=== PATIENT | female | born 1990 | race Caucasian/White ===

== ENCOUNTER 2016-09-05 17:40 | Emergency (ER) | payer OTHER ==
--- NOTE | 2016-09-05 19:54 | ED CLINICAL REPORT ---
Clinical Report - Physicians/Mid Levels [facility] [address] [place] [address] 09/05/2016 17:42 Patient: KENYA SINGH Time Seen: 1812Sep 05 2016. Arrived- By private vehicle. Historian- patient. HISTORY OF PRESENT ILLNESS Chief Complaint: VAGINAL BLEEDING. This started just prior to arrival and still present. The symptoms are described as mild. (Patient reports numerous use of tampons in the last 4 hours, denies any history of similar heavy vaginal bleeding with her menses, this is a regular timeframe where she expected her menses. Denies any pain. Denies any lightheadedness syncope.). REVIEW OF SYSTEMS No vomiting, diarrhea or enlarged lymph nodes. All systems otherwise negative, except as recorded above. PAST HISTORY Problems: Anemia. Additional Surgeries: [place] teeth . Medications: None. Allergies: Codeine. SOCIAL HISTORY Current every day smoker. Alcohol use. No drug use. ADDITIONAL NOTES The nursing notes have been reviewed. PHYSICAL EXAM Vital Signs: 09/05/2016 17:54 BP: 132/77. HR: 65. RR: 18. O2 saturation: 100%. Temp: 98.4 F. Appearance: Alert. ENT: Pharynx normal. Neck: Neck supple. CVS: Heart sounds normal. Respiratory: No respiratory distress. Breath sounds normal. Abdomen: Soft and nontender. Bowel sounds normal. No abdominal tenderness or rebound tenderness. : Speculum and bimanual exam performed. External inspection normal. Speculum exam normal. Moderate vaginal bleeding, consisting of bright red blood. No cervical dilation. Bimanual exam normal. No tenderness present on bimanual exam. No tenderness with movement of the cervix. (chaperoned with RN). Neuro: Oriented X 3. LABS, X-RAYS, AND EKG Laboratory Tests: UA-Culture if indicated: (DAILY: 09/05/2016 18:50) ( MsgRcvd 09/05/2016 19:24) Final results Test Result Flag Units (Reference) URINE COLOR YELLOW URINE APPEARANCE CLEAR URINE GLUCOSE NEGATIVE (NEGATIVE) URINE BILIRUBIN NEGATIVE (NEGATIVE) URINE KETONE NEGATIVE (NEGATIVE) URINE SPECIFIC GRAVITY 1.010 (1.010-1.030) URINE PH 5.5 (5.0-8.0) URINE PROTEIN NEGATIVE (NEGATIVE) URINE UROBILINOGEN 0.2 EU/dL (0.2-1.0) URINE NITRITE NEGATIVE (NEGATIVE) URINE BLOOD TRACE-INTACT (NEGATIVE) URINE LEUK ESTERASE NEGATIVE (NEGATIVE) URINE RBC 0-1 rbc/hpf (0-1) URINE WBC RARE wbc/hpf (0-1) URINE EPITHELIAL CELLS 0-1 EPI/hpf (0-5) URINE BACTERIA NONE SEEN (NONE SEEN) URINE COMMENT CULT NOT INDICATED URINE CULTURES ARE SET-UP BASED ON THE FOLLOWING CRITERIA:POSITIVE NITRITEPOSITIVE LEUKOCYTE ESTERASEGREATER THAN 10 WHITE BLOOD CELLSMODERATE (2+) OR GREATER BACTERIA CBC w Diff: (DAILY: 09/05/2016 19:10) ( [facility] 09/05/2016 19:24) Final results Test Result Flag Units (Reference) WHITE BLOOD COUNT 12.2 H K/uL (4.5-11.5) RED BLOOD COUNT 4.37 M/uL (4.00-5.20) HEMOGLOBIN 13.5 gm/dL (12.0-16.0) HEMATOCRIT 39.1 % (36.0-46.0) MEAN CELL VOLUME 89 fL (80-100) MEAN CORPUSCULAR HGB 31 pg (26-34) MEAN CORPUSCULAR HGB CONC 35 g/dL (31-37) RED CELL DISTRIBUTION WIDTH 12.5 % (11.6-14.8) PLATELET COUNT 222 K/uL (150-400) NEUTROPHIL % 74.4 % (50-75) LYMPH % 17.0 L % (25-40) MONO % 6.2 % (3-14) EOSINOPHIL % 1.0 % (0-4) BASOPHIL % 1.4 % (0-2) BMP: (DAILY: 09/05/2016 19:10) ( [facility] 09/05/2016 19:43) Final results Test Result Flag Units (Reference) GLUCOSE 95 mg/dL (70-110) BUN 9 mg/dL (7-18) CREATININE 0.7 mg/dL (0.6-1.3) Estimated GFR >60 mL/min Estimated GFR- >60 mL/min Note: Persistent reduction over 3 months in eGFR<60 mL/min/1.73 m2 defines CKD. Patients with eGFR values>=60 mL/min/1.73 m2 may also have CKD if evidence ofpersistent proteinuria. Additional information may be foundat www.kidney.org. SODIUM 140 mmol/L (136-145) POTASSIUM 3.7 mmol/L (3.5-5.1) CHLORIDE 107 mmol/L (98-107) CARBON DIOXIDE 24 mmol/L (21-32) CALCIUM 8.8 mg/dL (8.5-10.1) BETA HCG, QUANTITATIVE <1 mIU/mL REFERENCE RANGE:Adult Males: <2 mIU/mLNon- Females: <6 mIU/mL Females:Approximate Approximate hCGGestational Age Range (mIU/mL) 0-1 week 0-501-2 weeks 40-3002-3 weeks 100-42093-0 weeks 500-49953-9 months 5,000-200,0002-3 months 10,000-100,0002nd trimester 3,000-50,0003rd trimester 1,000-50,000 . Note - Tests: (US pelvic: IMPRESSION: 1. Normal uterus and right ovary. 2. Non-visualized left ovary but no secondary sign of left adnexal pathology. Correlate clinically. Electronically Final signed by:Zaina Emanuel MD 09/05/2016 9:24:36 PM). PROGRESS AND PROCEDURES Course of Care: Here in the ER patient is very stable, hemodynamically stable, CBC unremarkable. Bleeding from the vagina and the cervix, with no clots, as expected for menses. Patient with largely otherwise negative ultrasound. Pain does not correlate the left aspect, and there is no secondary concern for acute torsion and tubo-ovarian abscess. Negative in the emergency department. 09/05/2016 20:07 BP: 117/72. HR: 68. RR: 17. O2 saturation: 100%. Temp: 97.6 F. Pain level now: 0/10. Patient is stable. Physical exam findings are improved. Symptoms better. Patient/family counseled. Differential Diagnosis: I considered perforated peptic ulcer, acute cholecystitis, acute appendicitis, diverticulitis, small bowel obstruction, adhesions, urinary tract infection, cystitis, ovarian cyst, pelvic inflammatory disease, pelvic abscess, hernia, diabetic ketoacidosis and medications as a possible cause of pelvic pain in this patient. This is a partial list of diagnoses considered. Disposition: Discharged. CLINICAL IMPRESSION Menorrhagia. INSTRUCTIONS No strenuous activity. Drink plenty of fluids. (motrin 800 mg every 8 hours starting two days before as needed for cramps). Warnings: Further evaluation is necessary. Follow-up: Follow up with a specialist. Follow-up with: Kiel Sosa MD, Obstetrics/Gynecology, , [facility], [address] [place] [address] Follow up. Call for the next available appointment. (Electronically signed by Kyara Mott P.A.-C 09/05/2016 22:39)
--- NOTE | 2016-09-05 19:54 | ED ORDER SUMMARY ---
..... Patient: KENYA SINGH OrderSheet [facility] VisitID: [id number] [address] [place] [address] 26y, F Registration Date/Time: 09/05/2016 ORDER SHEET Weight: 72.5 kg (stated) Allergies: Codeine GENERAL ORDERS: US Pelvic Complete w Transvag Urgent (18:13 09/05/2016 EKoroleva P.A.-C) (Ack 18:19 KHoerner) (19:09 EHassan R.N.) CBC w Diff Urgent (18:13 09/05/2016 EKoroleva P.A.-C) (Ack 18:19 KHoerner) (19:09 EHassan R.N.) BMP Urgent (18:13 09/05/2016 EKoroleva P.A.-C) (Ack 18:19 KHoerner) (19:09 EHassan R.N.) Serum Quantitative Urgent (18:13 09/05/2016 EKoroleva P.A.-C) (Ack 18:19 KHoerner) (19:09 EHassan R.N.) UA-Culture if indicated Urgent (18:13 09/05/2016 EKoroleva P.A.-C) (Ack 18:19 KHoerner) (18:57 JSanders R.N.) MEDICATION ORDERS: IV FLUIDS: ORDER SHEET NOTES: [Electronically signed by Taylor Pineda R.N. (20:08 09/05/2016)] [Electronically signed by Kyara Mott P.A.-C (22:39 09/05/2016)] [Electronically locked/signed by Taylor Pineda R.N. (20:08 09/05/2016)]
--- NOTE | 2016-09-05 19:54 | ED CLINICAL REPORT ---
Clinical Report - Physicians/Mid Levels [facility] [address] [place] [address] 09/05/2016 17:42 Patient: KENYA SINGH Time Seen: 1812Sep 05 2016. Arrived- By private vehicle. Historian- patient. HISTORY OF PRESENT ILLNESS Chief Complaint: VAGINAL BLEEDING. This started just prior to arrival and still present. The symptoms are described as mild. (Patient reports numerous use of tampons in the last 4 hours, denies any history of similar heavy vaginal bleeding with her menses, this is a regular timeframe where she expected her menses. Denies any pain. Denies any lightheadedness syncope.). REVIEW OF SYSTEMS No vomiting, diarrhea or enlarged lymph nodes. All systems otherwise negative, except as recorded above. PAST HISTORY Problems: Anemia. Additional Surgeries: [place] teeth . Medications: None. Allergies: Codeine. SOCIAL HISTORY Current every day smoker. Alcohol use. No drug use. ADDITIONAL NOTES The nursing notes have been reviewed. PHYSICAL EXAM Vital Signs: 09/05/2016 17:54 BP: 132/77. HR: 65. RR: 18. O2 saturation: 100%. Temp: 98.4 F. Appearance: Alert. ENT: Pharynx normal. Neck: Neck supple. CVS: Heart sounds normal. Respiratory: No respiratory distress. Breath sounds normal. Abdomen: Soft and nontender. Bowel sounds normal. No abdominal tenderness or rebound tenderness. : Speculum and bimanual exam performed. External inspection normal. Speculum exam normal. Moderate vaginal bleeding, consisting of bright red blood. No cervical dilation. Bimanual exam normal. No tenderness present on bimanual exam. No tenderness with movement of the cervix. (chaperoned with RN). Neuro: Oriented X 3. LABS, X-RAYS, AND EKG Laboratory Tests: UA-Culture if indicated: (DAILY: 09/05/2016 18:50) ( MsgRcvd 09/05/2016 19:24) Final results Test Result Flag Units (Reference) URINE COLOR YELLOW URINE APPEARANCE CLEAR URINE GLUCOSE NEGATIVE (NEGATIVE) URINE BILIRUBIN NEGATIVE (NEGATIVE) URINE KETONE NEGATIVE (NEGATIVE) URINE SPECIFIC GRAVITY 1.010 (1.010-1.030) URINE PH 5.5 (5.0-8.0) URINE PROTEIN NEGATIVE (NEGATIVE) URINE UROBILINOGEN 0.2 EU/dL (0.2-1.0) URINE NITRITE NEGATIVE (NEGATIVE) URINE BLOOD TRACE-INTACT (NEGATIVE) URINE LEUK ESTERASE NEGATIVE (NEGATIVE) URINE RBC 0-1 rbc/hpf (0-1) URINE WBC RARE wbc/hpf (0-1) URINE EPITHELIAL CELLS 0-1 EPI/hpf (0-5) URINE BACTERIA NONE SEEN (NONE SEEN) URINE COMMENT CULT NOT INDICATED URINE CULTURES ARE SET-UP BASED ON THE FOLLOWING CRITERIA:POSITIVE NITRITEPOSITIVE LEUKOCYTE ESTERASEGREATER THAN 10 WHITE BLOOD CELLSMODERATE (2+) OR GREATER BACTERIA CBC w Diff: (DAILY: 09/05/2016 19:10) ( [facility] 09/05/2016 19:24) Final results Test Result Flag Units (Reference) WHITE BLOOD COUNT 12.2 H K/uL (4.5-11.5) RED BLOOD COUNT 4.37 M/uL (4.00-5.20) HEMOGLOBIN 13.5 gm/dL (12.0-16.0) HEMATOCRIT 39.1 % (36.0-46.0) MEAN CELL VOLUME 89 fL (80-100) MEAN CORPUSCULAR HGB 31 pg (26-34) MEAN CORPUSCULAR HGB CONC 35 g/dL (31-37) RED CELL DISTRIBUTION WIDTH 12.5 % (11.6-14.8) PLATELET COUNT 222 K/uL (150-400) NEUTROPHIL % 74.4 % (50-75) LYMPH % 17.0 L % (25-40) MONO % 6.2 % (3-14) EOSINOPHIL % 1.0 % (0-4) BASOPHIL % 1.4 % (0-2) BMP: (DAILY: 09/05/2016 19:10) ( [facility] 09/05/2016 19:43) Final results Test Result Flag Units (Reference) GLUCOSE 95 mg/dL (70-110) BUN 9 mg/dL (7-18) CREATININE 0.7 mg/dL (0.6-1.3) Estimated GFR >60 mL/min Estimated GFR- >60 mL/min Note: Persistent reduction over 3 months in eGFR<60 mL/min/1.73 m2 defines CKD. Patients with eGFR values>=60 mL/min/1.73 m2 may also have CKD if evidence ofpersistent proteinuria. Additional information may be foundat www.kidney.org. SODIUM 140 mmol/L (136-145) POTASSIUM 3.7 mmol/L (3.5-5.1) CHLORIDE 107 mmol/L (98-107) CARBON DIOXIDE 24 mmol/L (21-32) CALCIUM 8.8 mg/dL (8.5-10.1) BETA HCG, QUANTITATIVE <1 mIU/mL REFERENCE RANGE:Adult Males: <2 mIU/mLNon- Females: <6 mIU/mL Females:Approximate Approximate hCGGestational Age Range (mIU/mL) 0-1 week 0-501-2 weeks 40-3002-3 weeks 100-66178-8 weeks 500-22693-1 months 5,000-200,0002-3 months 10,000-100,0002nd trimester 3,000-50,0003rd trimester 1,000-50,000 . Note - Tests: (US pelvic: IMPRESSION: 1. Normal uterus and right ovary. 2. Non-visualized left ovary but no secondary sign of left adnexal pathology. Correlate clinically. Electronically Final signed by:Zaina Emanuel MD 09/05/2016 9:24:36 PM). PROGRESS AND PROCEDURES Course of Care: Here in the ER patient is very stable, hemodynamically stable, CBC unremarkable. Bleeding from the vagina and the cervix, with no clots, as expected for menses. Patient with largely otherwise negative ultrasound. Pain does not correlate the left aspect, and there is no secondary concern for acute torsion and tubo-ovarian abscess. Negative in the emergency department. 09/05/2016 20:07 BP: 117/72. HR: 68. RR: 17. O2 saturation: 100%. Temp: 97.6 F. Pain level now: 0/10. Patient is stable. Physical exam findings are improved. Symptoms better. Patient/family counseled. Differential Diagnosis: I considered perforated peptic ulcer, acute cholecystitis, acute appendicitis, diverticulitis, small bowel obstruction, adhesions, urinary tract infection, cystitis, ovarian cyst, pelvic inflammatory disease, pelvic abscess, hernia, diabetic ketoacidosis and medications as a possible cause of pelvic pain in this patient. This is a partial list of diagnoses considered. Disposition: Discharged. CLINICAL IMPRESSION Menorrhagia. INSTRUCTIONS No strenuous activity. Drink plenty of fluids. (motrin 800 mg every 8 hours starting two days before as needed for cramps). Warnings: Further evaluation is necessary. Follow-up: Follow up with a specialist. Follow-up with: Kiel Sosa MD, Obstetrics/Gynecology, , [facility], [address] [place] [address] Follow up. Call for the next available appointment. (Electronically signed by Kyara Mott P.A.-C 09/05/2016 22:39)
--- NOTE | 2016-09-05 19:54 | ED NURSING NOTES ---
Clinical Report - Nurses [facility] [address] [place] [address] 09/05/2016 17:42 [id number] Triage time 17:55 Sep 05 2016. Acuity: LEVEL 3. Chief Complaint: VAGINAL BLEED. ERIKA COMA SCORE: Erika Coma Scale: 15- eyes open spontaneously (4); best verbal response- oriented x 4 (5); best motor response- obeys commands (6). --18:01 Annie Serrano R.N. 17:54 09/05/16. BP: 132/77. HR: 65. RR: 18. O2 saturation: 100%. Temp: 98.4 F. Pain level now 5/10. --18:01 Annie Serrano R.N. Weight: 72.5 kg stated. Height/Length: 62 inches Per Patient. BMI: 29.3. --18:00 Annie Serrano R.N. Medications None. --17:57 Annie Serrano R.N. Allergies Codeine. --17:58 Annie Serrano R.N. History Arrived by private vehicle. Historian: patient. Accompanied by family. This started today. ( Patient started period today and is having cramping and increased bleeding then she ever has before. Since 4pm has changed tampon 7 times all saturated no clots no foul odor.). She has had abdominal pain and abnormal bleeding described as heavier than normal period. No hematuria, flank pain or fever. PAST MEDICAL HX: No history of diabetes mellitus or hypertension. No history of pelvic inflammatory disease, endometriosis or sexually transmitted disease. Immunizations: up-to-date. Last normal menstrual period- August 07. SOCIAL HX: Current some days light tobacco smoker- less than 1/2 a pack per day. Occasional alcohol use. No drug use. SELF HARM ASSESSMENT: A self harm assessment was performed. The patient answered "no" to the question "Have you recently felt down, depressed, or hopeless?" and "Do you have thoughts of harming or killing yourself?". FALL RISK ASSESSMENT: Fall risk assessment completed. No fall risk identified. NUTRITIONAL RISK ASSESSMENT: The nutritional risk assessment revealed no deficiencies. FUNCTIONAL ASSESSMENT: Functional assessment: no impairments noted. LEARNING NEEDS ASSESSMENT: The learning needs assessment revealed no barriers. ABUSE ASSESSMENT: Abuse assessment: (yes) The patient was asked "Do you feel safe in your home?". SKIN INTEGRITY ASSESSMENT: Skin integrity risk assessment completed. No skin integrity risk identified. --18:01 Annie Serrano R.N. PROBLEMS: Anemia. --17:58 Annie Serrano R.N. ADDITIONAL SURGERIES: [place] teeth . --17:58 Annie Serrano R.N. Interventions ID band on patient. --18:01 Annie Serrano R.N. PHYSICAL ASSESSMENT Ambulatory to room. GENERAL / NEURO / PSYCH: Alert. Oriented X 4. Appears in no acute distress. HEENT: Mucous membranes are pink. RESPIRATORY: Respirations not labored. Breath sounds within normal limits. CVS: Normal heart rate and rhythm. Capillary refill less than 2 seconds. GI / : Abdomen soft and nontender. Abnormal bowel sounds present (Last BM today and normal). Bowel sounds within normal limits. Moderate vaginal bleeding present, consisting of bright red blood. No vaginal discharge. No genital lesions noted. No vaginal discharge. SKIN: Skin is warm and dry. --18:02 Annie Serrano R.N. NURSING PROGRESS NOTES The initial plan of care for this patient includes an assessment with efforts to address the patient's anxiety; patient positioning and appropriate ambient lighting; impairment of the genitourinary system. Pulse oximeter and NIBP monitor placed on patient. Patient gowned. Head of bed elevated (45). Reassurance given. Call light placed in reach. Side rails up x 1. Bed placed in lowest position. Brakes of bed on. --18:03 Annie Serrano R.N. PELVIC EXAM: Pelvic exam performed by ARASH. Assisted by one nurse. Preparation: pelvic tray; patient placed in lithotomy position. Procedure: speculum and bimanual exam. Moderate amount of bright red vaginal bleeding noted with clots. Status post-procedure: she was stable. Total time of assist / procedure: 15 minutes. --18:20 Annie Serrano R.N. DISPOSITION / DISCHARGE Departure time: 20:08. Condition at departure: improved. No learning barriers present. Discharge instructions provided and reviewed with the patient. Reviewed referral to a market garden worker. Activity restrictions reviewed (no strenous activity). Patient verbalized understanding. Written instructions provided in Czech. No warning instructions, medication instructions, treatment instructions, diet instructions or note given. No follow up contact number given or stop smoking instructions. The patient was discharged by the physician funeral director's assistant. She was discharged home and accompanied by spouse. She left the Emergency Department ambulatory and via private vehicle. Spouse driving. FALL RISK ASSESSMENT: Fall risk assessment completed. No fall risk identified. --20:08 Govind Leonard 20:07 09/05/16. BP: 117/72. HR: 68. RR: 17. O2 saturation: 100%. Temp: 97.6 F. Pain level now: 0/10. --20:08 Govind Leonard Locked/Released at 09/05/2016 20:08 by Govind Leonard
--- NOTE | 2016-09-05 19:54 | ED NURSING NOTES ---
Clinical Report - Nurses [facility] [address] [place] [address] 09/05/2016 17:42 [id number] TRI[facility] Triage time 17:55 Sep 05 2016. Acuity: LEVEL 3. Chief Complaint: VAGINAL BLEED. ERIKA COMA SCORE: Erika Coma Scale: 15- eyes open spontaneously (4); best verbal response- oriented x 4 (5); best motor response- obeys commands (6). --18:01 Annie Serrano R.N. 17:54 09/05/16. BP: 132/77. HR: 65. RR: 18. O2 saturation: 100%. Temp: 98.4 F. Pain level now 5/10. --18:01 Annie Serrano R.N. Weight: 72.5 kg stated. Height/Length: 62 inches Per Patient. BMI: 29.3. --18:00 Annie Serrano R.N. Medications None. --17:57 Annie Serrano R.N. Allergies Codeine. --17:58 Annie Serrano R.N. History Arrived by private vehicle. Historian: patient. Accompanied by family. This started today. ( Patient started period today and is having cramping and increased bleeding then she ever has before. Since 4pm has changed tampon 7 times all saturated no clots no foul odor.). She has had abdominal pain and abnormal bleeding described as heavier than normal period. No hematuria, flank pain or fever. PAST MEDICAL HX: No history of diabetes mellitus or hypertension. No history of pelvic inflammatory disease, endometriosis or sexually transmitted disease. Immunizations: up-to-date. Last normal menstrual period- August 07. SOCIAL HX: Current some days light tobacco smoker- less than 1/2 a pack per day. Occasional alcohol use. No drug use. SELF HARM ASSESSMENT: A self harm assessment was performed. The patient answered "no" to the question "Have you recently felt down, depressed, or hopeless?" and "Do you have thoughts of harming or killing yourself?". FALL RISK ASSESSMENT: Fall risk assessment completed. No fall risk identified. NUTRITIONAL RISK ASSESSMENT: The nutritional risk assessment revealed no deficiencies. FUNCTIONAL ASSESSMENT: Functional assessment: no impairments noted. LEARNING NEEDS ASSESSMENT: The learning needs assessment revealed no barriers. ABUSE ASSESSMENT: Abuse assessment: (yes) The patient was asked "Do you feel safe in your home?". SKIN INTEGRITY ASSESSMENT: Skin integrity risk assessment completed. No skin integrity risk identified. --18:01 Annie Serrano R.N. PROBLEMS: Anemia. --17:58 Annie Serrano R.N. ADDITIONAL SURGERIES: [place] teeth . --17:58 Annie Serrano R.N. Interventions ID band on patient. --18:01 Annie Serrano R.N. PHYSICAL ASSESSMENT Ambulatory to room. GENERAL / NEURO / PSYCH: Alert. Oriented X 4. Appears in no acute distress. HEENT: Mucous membranes are pink. RESPIRATORY: Respirations not labored. Breath sounds within normal limits. CVS: Normal heart rate and rhythm. Capillary refill less than 2 seconds. GI / : Abdomen soft and nontender. Abnormal bowel sounds present (Last BM today and normal). Bowel sounds within normal limits. Moderate vaginal bleeding present, consisting of bright red blood. No vaginal discharge. No genital lesions noted. No vaginal discharge. SKIN: Skin is warm and dry. --18:02 Annie Serrano R.N. NURSING PROGRESS NOTES The initial plan of care for this patient includes an assessment with efforts to address the patient's anxiety; patient positioning and appropriate ambient lighting; impairment of the genitourinary system. Pulse oximeter and NIBP monitor placed on patient. Patient gowned. Head of bed elevated (45). Reassurance given. Call light placed in reach. Side rails up x 1. Bed placed in lowest position. Brakes of bed on. --18:03 Annie Serrano R.N. PELVIC EXAM: Pelvic exam performed by ARASH. Assisted by one nurse. Preparation: pelvic tray; patient placed in lithotomy position. Procedure: speculum and bimanual exam. Moderate amount of bright red vaginal bleeding noted with clots. Status post-procedure: she was stable. Total time of assist / procedure: 15 minutes. --18:20 Annie Serrano R.N. DISPOSITION / DISCHARGE Departure time: 20:08. Condition at departure: improved. No learning barriers present. Discharge instructions provided and reviewed with the patient. Reviewed referral to a master baker. Activity restrictions reviewed (no strenous activity). Patient verbalized understanding. Written instructions provided in Swedish. No warning instructions, medication instructions, treatment instructions, diet instructions or note given. No follow up contact number given or stop smoking instructions. The patient was discharged by the physician talent assistant. She was discharged home and accompanied by spouse. She left the Emergency Department ambulatory and via private vehicle. Spouse driving. FALL RISK ASSESSMENT: Fall risk assessment completed. No fall risk identified. --20:08 Govind Leonard 20:07 09/05/16. BP: 117/72. HR: 68. RR: 17. O2 saturation: 100%. Temp: 97.6 F. Pain level now: 0/10. --20:08 Govind Leonard Locked/Released at 09/05/2016 20:08 by Govind Leonard
--- NOTE | 2016-09-05 19:54 | ED ORDER SUMMARY ---
..... Patient: KENYA SINGH OrderSheet [facility] VisitID: [id number] [address] [place] [address] 26y, F Registration Date/Time: 09/05/2016 ORDER SHEET Weight: 72.5 kg (stated) Allergies: Codeine GENERAL ORDERS: US Pelvic Complete w Transvag Urgent (18:13 09/05/2016 EKoroleva P.A.-C) (Ack 18:19 KHoerner) (19:09 EHassan R.N.) CBC w Diff Urgent (18:13 09/05/2016 EKoroleva P.A.-C) (Ack 18:19 KHoerner) (19:09 EHassan R.N.) BMP Urgent (18:13 09/05/2016 EKoroleva P.A.-C) (Ack 18:19 KHoerner) (19:09 EHassan R.N.) Serum Quantitative Urgent (18:13 09/05/2016 EKoroleva P.A.-C) (Ack 18:19 KHoerner) (19:09 EHassan R.N.) UA-Culture if indicated Urgent (18:13 09/05/2016 EKoroleva P.A.-C) (Ack 18:19 KHoerner) (18:57 JSanders R.N.) MEDICATION ORDERS: IV FLUIDS: ORDER SHEET NOTES: [Electronically signed by Taylor Pineda R.N. (20:08 09/05/2016)] [Electronically signed by Kyara Mott P.A.-C (22:39 09/05/2016)] [Electronically locked/signed by Taylor Pineda R.N. (20:08 09/05/2016)]
--- NOTE | 2016-09-05 21:24 | DIAGNOSTIC IMAGING REPORT ---
PROCEDURE: US COMPLETE PELVIC W/TRANSVAG INDICATION: PAIN TECHNIQUE: Transabdominal and endovaginal sands scale and color Doppler sonographic images of the female pelvis were obtained. COMPARISON: None. FINDINGS: TRANSABDOMINAL SCANS: Anteverted uterus measures approximately 6.0 x 3.4 x 3.8 cm. Normal contour and echotexture. Normal adnexa without suspicious mass. The visible portion of the urinary bladder is normal. No significant free pelvic fluid. TRANSVAGINAL SCANS: The uterus is anteverted and anteflexed in position and has a homogeneous myometrial echotexture. Normal vascularity. The endometrium is 6 mm in thickness. No endometrial fluid collections or suspicious masses. The right ovary measures 2.9 x 1.6 x 1.7 cm and has a normal follicular echotexture. There is normal arterial ovarian flow present. The left ovary identified. No suspicious left adnexal mass or free pelvic fluid. IMPRESSION: 1. Normal uterus and right ovary. 2. Non-visualized left ovary but no secondary sign of left adnexal pathology. Correlate clinically.
--- NOTE | 2016-09-05 22:39 | ED DISCHARGE INSTRUCTIONS ---
Patient: KENYA SINGH General Instructions [facility] VisitID: [id number] [place] [id number] 26y, F Registration Date/Time: 09/05/2016 Menorrhagia. INSTRUCTIONS No strenuous activity. Drink plenty of fluids. (motrin 800 mg every 8 hours starting two days before as needed for cramps). Warnings: Further evaluation is necessary. Follow-up: Follow up with a specialist. Follow-up with: Kiel Sosa MD, Obstetrics/Gynecology, , [facility], [address] [place] [address] Follow up. Call for the next available appointment. ADDITIONAL INFORMATION Heavy Menstrual Bleeding In this condition (also called "menorrhagia"), the menstrual periods are heavier or longer than usual. You may pass large, dark clots. If you have frequent, heavy periods, you may become anemic (low blood count). Severe anemia may cause you to look pale and feel weak or fatigued. You might become short of breath with minimal exertion. Heavy or prolonged bleeding may be due to female hormones being out of balance. Other causes include pelvic infection, benign fibroid tumors, use of an IUD or low thyroid function. It may occur in girls soon after they start to have their periods. Older women close to the age of menopause may also have this type of bleeding. If heavy bleeding does not stop, further evaluation will be needed to find out the exact cause. Home Care: If you tire easily, get plenty of rest. Avoid heavy exertion. Do not take aspirin-containing products and anti-inflammatory medicines like ibuprofen (Advil, Motrin), which thin the blood and may cause more bleeding. You may take acetaminophen (Tylenol) for pain unless another pain medicine was prescribed. If iron was prescribed for anemia, it will take about 4-6 weeks to rebuild your blood and correct the anemia. Take the iron as directed. If hormones were prescribed to control your bleeding, take them just as instructed. If you stop too soon or miss doses, the bleeding may begin again. If you were prescribed a medicine called Provera (medroxyprogesterone), the bleeding should stop while you are taking it. Another period will start a few days after you finish the medicine. Follow Up: You should see your doctor within the next 1-2 days if your bleeding does not begin to improve. Otherwise, schedule an appointment within the next 1-2 weeks. Get Prompt Medical Attention if any of the following occur: Heavier bleeding (soaking one pad an hour for three hours) Heavy bleeding for more than one week Fever of 100.4F (38C) or higher, or as directed by your healthcare provider Increase in abdominal pain Feeling weak or dizzy, fainting You have been given the following additional information: Menorrhagia No strenuous activity. (Electronically signed by Kyara Mott P.A.-C 09/05/2016 22:39)
--- NOTE | 2016-09-05 22:39 | ED DISCHARGE INSTRUCTIONS ---
Patient: KENYA SINGH General Instructions [facility] VisitID: [id number] [place]ena [place] [id number] 26y, F Registration Date/Time: 09/05/2016 Menorrhagia. INSTRUCTIONS No strenuous activity. Drink plenty of fluids. (motrin 800 mg every 8 hours starting two days before as needed for cramps). Warnings: Further evaluation is necessary. Follow-up: Follow up with a specialist. Follow-up with: Kiel Sosa MD, Obstetrics/Gynecology, , [facility], [address] [place] [address] Follow up. Call for the next available appointment. ADDITIONAL INFORMATION Heavy Menstrual Bleeding In this condition (also called "menorrhagia"), the menstrual periods are heavier or longer than usual. You may pass large, dark clots. If you have frequent, heavy periods, you may become anemic (low blood count). Severe anemia may cause you to look pale and feel weak or fatigued. You might become short of breath with minimal exertion. Heavy or prolonged bleeding may be due to female hormones being out of balance. Other causes include pelvic infection, benign fibroid tumors, use of an IUD or low thyroid function. It may occur in girls soon after they start to have their periods. Older women close to the age of menopause may also have this type of bleeding. If heavy bleeding does not stop, further evaluation will be needed to find out the exact cause. Home Care: If you tire easily, get plenty of rest. Avoid heavy exertion. Do not take aspirin-containing products and anti-inflammatory medicines like ibuprofen (Advil, Motrin), which thin the blood and may cause more bleeding. You may take acetaminophen (Tylenol) for pain unless another pain medicine was prescribed. If iron was prescribed for anemia, it will take about 4-6 weeks to rebuild your blood and correct the anemia. Take the iron as directed. If hormones were prescribed to control your bleeding, take them just as instructed. If you stop too soon or miss doses, the bleeding may begin again. If you were prescribed a medicine called Provera (medroxyprogesterone), the bleeding should stop while you are taking it. Another period will start a few days after you finish the medicine. Follow Up: You should see your doctor within the next 1-2 days if your bleeding does not begin to improve. Otherwise, schedule an appointment within the next 1-2 weeks. Get Prompt Medical Attention if any of the following occur: Heavier bleeding (soaking one pad an hour for three hours) Heavy bleeding for more than one week Fever of 100.4F (38C) or higher, or as directed by your healthcare provider Increase in abdominal pain Feeling weak or dizzy, fainting You have been given the following additional information: Menorrhagia No strenuous activity. (Electronically signed by Kyara Mott P.A.-C 09/05/2016 22:39)
--- NOTE | 2016-09-05 22:40 | ED MAR SUMMARY ---
..... Medication Administration Record [facility] [address] [place] [place], [place] [id number] Patient: KENYA SINGH Visit ID: [id number] 26y, F Weight: 72.5 kg Height/Length: 62 in BMI: 29.3 ALLERGIES: Codeine
--- NOTE | 2016-09-05 22:40 | ED MAR SUMMARY ---
..... Medication Administration Record [facility] [address] [place], [place] [id number] Patient: KENYA SINGH Visit ID: [id number] 26y, F Weight: 72.5 kg Height/Length: 62 in BMI: 29.3 ALLERGIES: Codeine
--- NOTE | 2016-09-05 22:40 | ED MED RECONCILIATION SUMMARY ---
Patient: KENYA SINGH Medication Reconciliation Report [facility] VisitID: [id number] [address] [place] [place] [address] 26y, F Registration Date/Time: 09/05/2016 Weight: 72.5 kg Height/Length: 62 in. BMI: 29.3 ALLERGIES: Codeine The patient's Home Medications are listed below: NONE. The source(s) of the original Home Medication information: Not obtained. The following Medications were given to the patient in the Emergency Department: None. The following Medications were prescribed to the patient: None.
--- NOTE | 2016-09-05 22:40 | ED MED RECONCILIATION SUMMARY ---
Patient: KENYA SINGH Medication Reconciliation Report [facility] VisitID: [id number] [address] [place] [place] [address] 26y, F Registration Date/Time: 09/05/2016 Weight: 72.5 kg Height/Length: 62 in. BMI: 29.3 ALLERGIES: Codeine The patient's Home Medications are listed below: NONE. The source(s) of the original Home Medication information: Not obtained. The following Medications were given to the patient in the Emergency Department: None. The following Medications were prescribed to the patient: None.
== END 2016-09-05 20:05 | disposition home or self-care (01) ==
LOC: ED SRH 17:40
DX: N92.0 Excessive and frequent menstruation with regular cycle (principal); F17.200 Nicotine dependence, unspecified, uncomplicated; Z88.5 Allergy status to narcotic agent
CPT/HCPCS: 90004; 90047; 90197; 95059